=== PATIENT | male | born 1980 | race Caucasian/White ===

== ENCOUNTER 2017-11-06 14:58 | Emergency (ER) | payer BC, OTHER ==
--- NOTE | 2017-11-06 16:33 | EDM.PDOC ---
ED HPI GENERAL MEDICAL PROBLEM - General Chief Complaint: Lower Extremity Injury/Pain Stated Complaint: INJURED R BIG TOE Time Seen by Provider: 11/06/17 16:19 Source of Information: Reports: Patient History Limitations: Reports: No Limitations - History of Present Illness INITIAL COMMENTS - FREE TEXT/NARRATIVE: 37 year old male presents for evaluation and treatment of an injury to the right foot. Patient reports prior to arrival in the year he dropped engine block , weighing about 80 pounds onto his toe. He is currently complaining of pain to the right foot toes one through 3. He denies any numbness or tingling. He has a laceration to the dorsal right great toe and a subungual hematoma. Reports pain with ambulation. Tetanus is up-to-date. Location: Reports: Lower Extremity, Right Right Feet Pain Score (Numeric/FACES): 5 - Related Data Allergies Allergy/AdvReac Type Severity Reaction Status Date / Time No Known Allergies Allergy Verified 11/06/17 15:25 Home Meds: Home Meds Cephalexin [IJD: Cephalexin] 500 mg PO .EVERY 8 HOURS #21 cap 11/06/17 [Rx] Past Medical History - Past Health History Medical/Surgical History: Denies Medical/Surgical History Social & Family History - Tobacco Use Smoking Status *Q: Former Smoker Used Tobacco, but Quit: No - Recreational Drug Use Recreational Drug Use: No Review of Systems - Review of Systems Review Of Systems: See Below Musculoskeletal: Reports: Foot Pain (right foot toes 1-3) Skin: Reports: Wound (right dorsal toe), Other (subungual hematoma) Neurological: Reports: Difficulty Walking. Denies: Numbness, Tingling ED EXAM, GENERAL - Physical Exam Exam: See Below Exam Limited By: No Limitations General Appearance: Alert, WD/WN, No Apparent Distress Respiratory/Chest: No Respiratory Distress Cardiovascular: Normal Peripheral Pulses, Regular Rate, Rhythm Peripheral Pulses: 3+: Posterior Tibial (L), Posterior Tibial (R), Dorsalis Pedis (L), Dorsalis Pedis (R) Extremities: Other (tenderness to palpation to the right toes 1-3; no obvious deformity ) Neurological: Alert, Oriented, Normal Cognition Psychiatric: Normal Affect, Normal Mood Skin Exam: Warm, Dry, Normal Color, Wound/Incision (right great toe dorsal superficial laceration approximately 1cm in length; subungual hematoma to the proximal end) Course - Vital Signs Last Recorded V/S: Last Vital Signs Temp 37.0 C 11/06/17 15:26 Pulse 75 11/06/17 15:26 Resp 17 11/06/17 15:26 BP 154/107 H 11/06/17 15:26 Pulse Ox 99 11/06/17 15:26 - Radiology Interpretation Free Text/Narrative:: xray of the right foot shows a nondisplaced tuft fracture of the distal phalnex - Re-Assessments/Exams Free Text/Narrative Re-Assessment/Exam: 11/06/17 18:31 I reviewed the x-ray results with the patient. Offered to drain the subungual hematoma but he declined. Given the sizes feet we do not have a postop shoe large enough for him. Recommended kamari taping the toes and follow-up with orthopedics. I'll start him on antibiotics. Discharge instructions as documented. Departure - Departure Time of Disposition: 18:33 Disposition: Home, Self-Care 01 Condition: Fair Clinical Impression: Fracture of toe of right foot - Discharge Information Prescriptions: Cephalexin [IJD: Cephalexin] 500 mg PO .EVERY 8 HOURS #21 cap Instructions: Toe Fracture Referrals: Antoine Shelton MD [Primary Care Provider] - Mario Ayala MD [Physician] - Forms: ED Department Discharge, ED Return to Work/School Form Additional Instructions: Keflex 1 tab 3 times a day for 7 days. [id number] Tylenol or Motrin as needed for pain. Note given for light duty at work. Follow-up with orthopedics in 1-2 weeks. Kamari tap the first and second toes together. Wear shoes that are rigid to prevent movement as much as possible. Please return to the ER if your symptoms change or worsen.
--- NOTE | 2017-11-07 12:54 | CR ---
Right foot: Four views of the right foot were obtained as well as additional lateral view of the toes. Findings: Fracture is identified within the distal phalanx of the first digit. Fracture mostly involves the tuft. Minimal displacement is seen. Calcifications are noted within the distal Achilles tendon at the attachment to the calcaneus. Vascular calcification is noted within the ankle. No additional fracture or other abnormality is appreciated. Impression: 1. Fracture within the distal first toe as described above. 2. Other incidental findings. Diagnostic code #3
== END 2017-11-06 18:45 | disposition home or self-care (01) ==
LOC: JD.ED 14:58
DX: S92.424A Nondisplaced fracture of distal phalanx of right great toe, initial encounter for closed fracture (principal); Z87.891 Personal history of nicotine dependence; W20.8XXA Other cause of strike by thrown, projected or falling object, initial encounter
CPT/HCPCS: 73630-26-RT; 73630-RT; 99283